=== PATIENT | female | born 1950 | race Caucasian/White ===

== ENCOUNTER → 2016-06-16 | Outpatient (CLI) | payer BC ==
[~2016-06-16] MED LIST: LORA-408 PO; METO25TA54 PO
--- NOTE | 2016-06-16 13:55 | RADRPT ---
PROCEDURE: XR Chest. CLINICAL INDICATION: Chest pain. TECHNIQUE: PA and lateral chest x-ray. COMPARISON: 10/24/2014. FINDINGS: The cardiomediastinal silhouette is unremarkable. Aortic atherosclerotic vascular calcifications ar e identified. No pneumothorax, pleural effusion or consolidation is seen. There are multilevel mild degenerative changes of thoracic spine with decreased disk spaces and oste ophytosis. Bilateral breast implants are noted. IMPRESSION: 1. No acute cardiopulmonary abnormality. No significant interval change. RPTAT: QQ .Elliott Block MD, MD Date Time Electronically viewed and signed by .Elliott Block MD, MD on 06/16/2016 13:55 .N/
== END | disposition home or self-care (01) ==
LOC: RAD 12:44
PROVIDERS: ATTEND Internal Medicine
DX: R07.9 Chest pain, unspecified (principal)
CPT/HCPCS: 71020

== ENCOUNTER 2017-05-22 10:13 | Emergency (ER) | END 2017-05-22 13:51 | disposition home or self-care (01) ==